=== PATIENT | female | born 1975 | race Caucasian/White ===

== ENCOUNTER 2016-09-26 01:54 | Emergency (ER) | payer MEDICAID ==
[~2016-09-26] VITALS: Ht 167.6 cm; Wt 67.3 kg
[~2016-09-26 01:54] MED LIST: ADDE30TA PO; AMOX500T PO; HYDR-3533 PO; IBUP800T23 PO; PAXI10TA PO
[2016-09-26 02:09] VITALS: BP 105/69; PULSE 93; RESP 16; TEMP 98.3; O2SAT 100
[2016-09-26] MEDS ORDERED: PAXI10TA2 PO (02:30)
--- NOTE | 2016-09-26 02:46 | PD ---
HPI Chief Complaint: Musculoskeletal Complaint Time Seen by Provider: 02:35 Travel History International Travel<30 days: No Contact w/Intl Traveler<30days: No Traveled to known affect area: No History of Present Illness HPI The patient is a 40-year-old female that 2 days ago was throwing a cast net and when she squatted to the dock complained of pain in her right knee. It is painful now for her to bear weight on the knee and a fully straighten her knee out. She denies any other injury. There was no direct trauma. She does have a history of an MCL tear on that knee 8 years ago. PFSH Past Medical History ADHD: Yes Anxiety: Yes Depression: Yes Diminished Hearing: No Influenza Vaccination: No ?: Not LMP: : 4 Para: 2 Miscarriage: 1 : 1 Ovarian Cysts: Yes Past Surgical History Gynecologic Surgery: Yes (laparoscopy) Other Surgery: Yes (WISDOM TEETH REMOVED) Social History Alcohol Use: Yes (socially) Tobacco Use: Yes (1/2 PPD using e cig to quit) Substance Use: No Allergies-Medications (Allergen,Severity, Reaction): Coded Allergies: Darvocet-N 100 (Verified Allergy, Severe, 09/26/16) PT STATES DOES NOT HAVE A ALLERGY TO THIS MEDICATION Reported Meds & Prescriptions Reported Meds & Active Scripts Active Percocet (Oxycodone-Acetaminophen) 5-325 mg Tab 1 Tab PO Q4H PRN Ibuprofen 600 Mg Tab 600 Mg PO TID Reported Paxil (Paroxetine HCl) 10 Mg Tab 10 Mg PO DAILY Review of Systems Except as stated in HPI: all other systems reviewed are Neg Physical Exam Narrative GENERAL: Well-nourished, well-developed patient in moderate apparent distress with her right knee discomfort. Her vital signs are normal. SKIN: Warm and dry. HEAD: Normocephalic. EYES: No scleral icterus. No injection or drainage. NECK: Supple, trachea midline. No JVD or lymphadenopathy. CARDIOVASCULAR: Regular rate and rhythm without murmurs, gallops, or rubs. RESPIRATORY: Breath sounds equal bilaterally. No accessory muscle use. GASTROINTESTINAL: Abdomen soft, non-tender, nondistended. MUSCULOSKELETAL: No cyanosis, or edema. There is no tenderness over the joint line but there is tenderness around the patella. No deformity is noted around the patella. She has exquisite pain when tightening the patella up or movement of the patella on the knee joint. Collaterals, drawer, Diana all appear intact. The patient can do full range of motion of the right knee but with pain at extremes. No joint swelling is noted. BACK: Nontender without obvious deformity. No CVA tenderness. Data Data Last Documented VS Vital Signs Date Time Temp Pulse Resp B/P Pulse Ox O2 Delivery O2 Flow Rate FiO2 09/26/16 02:09 98.3 93 16 105/69 100 Orders Knee, Complete (4vws) (09/26/16 ) [facility] Medical Decision Making Medical Screen Exam Complete: Yes Emergency Medical Condition: Yes Medical Record Reviewed: Yes Interpretation(s) X-rays of the knee are normal except for soft tissue swelling in the suprapatellar location. Differential Diagnosis Cartilage tear right knee, chondromalacia patella, fracture patella, fracture knee, subluxation patella Narrative Course On physical exam the patient appears to have a chondromalacia patella. She does not have a locked knee, she can do full range of motion of the knee with pain at the extremes. Plan: The patient will be put on Motrin 600 mg 3 times daily and she is given Percocet 5/325 for pain. She would not benefit with a knee immobilizer crutches because the knee immobilizer straightens her knee out too much. Her only comfort is still a in bed with her knee slightly flexed. Diagnosis Primary Impression: Chondromalacia patellae of right knee Additional Instructions: Follow-up with orthopedics if this becomes a persistent pain. At this time take the Motrin regularly and rest the knee. This usually results in calming down the inflammation. Med/Other Pt SpecificInfo: Prescription(s) given Scripts Oxycodone-Acetaminophen (Percocet)5-325 mg Tab1 Tab PO Q4H PRN (PAIN) #20 TAB Ref 0 Prov:Remy Green MD 09/26/16 Ibuprofen 600 Mg Suc192 Mg PO TID #45 TAB Ref 0 Prov:Remy Green MD 09/26/16 Disposition: 01 DISCHARGE HOME Condition: Stable Remy Green MD Sep 26, 2016 02:46
[2016-09-26] MEDS ORDERED: PERC5TAB12 PO (03:23)
[2016-09-26] MEDS ORDERED: IBUP-232 PO (03:23)
--- NOTE | 2016-09-26 04:39 | RADHPO ---
EXAM DATE/TIME: 09/26/2016 02:46 [facility] COMPARISON: No previous studies available for comparison. INDICATIONS : Hyperextended right knee two days ago. Anterior mid patella pain since. MEDICAL HISTORY : None. SURGICAL HISTORY : None. ENCOUNTER: Initial ACUITY: 2 days PAIN SCORE: 8/10 LOCATION: Right mid knee FINDINGS: Four view examination of the right knee demonstrates no evidence of fracture or dislocation. Bony mi neralization is normal. The articular surfaces are intact. There is soft tissue swelling in the supr apatella location.. CONCLUSION: No acute fracture or joint dislocation. Soft tissue swelling in the suprapatella location. Jared Ríos MD on September 26, 2016 at 4:36 Board Certified Radiologist. This report was verified electronically.
== END 2016-09-26 05:00 | disposition home or self-care (01) ==
LOC: PHED 01:54
DX: M22.41 Chondromalacia patellae, right knee (principal); F17.210 Nicotine dependence, cigarettes, uncomplicated; X58.XXXA Exposure to other specified factors, initial encounter; Y93.89 Activity, other specified; Y92.9 Unspecified place or not applicable
CPT/HCPCS: 73564; 99283; E0113